=== PATIENT | female | born 1985 | race African-American/Black ===

== ENCOUNTER 2020-05-02 20:28 | Emergency (ER) | payer OTHER ==
[2020-05-02 21:36] VITALS: BP 118/81; PULSE 76; TEMP 98.1; BMI 35.2
[2020-05-02] MEDS ORDERED: METOCLOPRAMIDE HCL 10 MG TABLET (FP) PO ONE ×2 (23:13→23:39)
[2020-05-02] MEDS ORDERED: ACETAMINOPHEN 500 MG TABLET (FP) PO ONE (23:15)
[2020-05-02] MEDS ORDERED: ACETAMINOPHEN 325 MG TABLET (FP) ONE (23:39)
== END 2020-05-03 00:10 | disposition home or self-care (01) ==
LOC: JER 20:28
DX: M25.561 Pain in right knee (principal); V49.50XA Passenger injured in collision with unspecified motor vehicles in traffic accident, initial encounter
CPT/HCPCS: 73562-TC-RT-FY; 99284-25

== ENCOUNTER 2022-09-17 16:12 | Emergency (ER) | payer BC, OTHER ==
[2022-09-17 16:30] VITALS: BP 156/98; PULSE 74; RESP 18; TEMP 98; BMI 37.0
[2022-09-17] MEDS ORDERED: ASPIRIN 81 MG CHEWABLE TABLETS PO ONE (17:16)
[2022-09-17] MEDS ORDERED: ASPIRIN 81 MG CHEWABLE TABLETS ONE (17:20)
[2022-09-17 18:08] LABS: BASO % 0.6 % (0-2.0); EOS % 1.6 % (0-4.5); HEMATOCRIT 35.9 % (32.4-45.2); HEMOGLOBIN 11.7 GM/dL (10.7-15.3); LYMPH % 20.8 % (8-40); MCH 26.5 pg (25.7-33.7); MCHC 32.5 g/dl (32.0-36.0); MEAN CELL VOLUME 81.4 fl (80-96); MEAN PLT VOLUME 8.8 fl (7.5-11.1); MONO % 8.4 % (3.8-10.2); NEUT % 68.6 % (42.8-82.8); PLATELET COUNT 322 10^3/uL (134-434); RBC 4.41 M/mm3 (3.60-5.2); RDW 13.8 % (11.6-15.6); WHITE BLOOD COUNT 8.2 K/mm3 (4.0-10.0)
[2022-09-17 18:16] LABS: INR 1.14 (0.83-1.09); PROTHROMBIN TIME (PATIENT) 13.2 SEC (9.7-13.0)
[2022-09-17 18:19] LABS: ACTIVATED PTT 35.1 SECONDS (25.2-36.5)
[2022-09-17 18:24] LABS: POTASSIUM 3.8 mmol/L (3.5-5.1)
[2022-09-17 18:28] LABS: ALBUMIN 3.8 g/dl (3.4-5.0); BLOOD UREA NITROGEN 7.7 mg/dL (7-18)
[2022-09-17 18:30] LABS: CREATININE 0.6 mg/dL (0.55-1.3)
[2022-09-17 18:33] LABS: BILIRUBIN,TOTAL 0.6 mg/dL (0.2-1); TOT PROT 7.6 g/dl (6.4-8.2)
== END 2022-09-17 21:48 | disposition home or self-care (01) ==
LOC: JER 16:12
DX: R07.9 Chest pain, unspecified (principal); R11.0 Nausea
CPT/HCPCS: 36415; 71045-TC-FY; 80053; 84484; 85025; 85610; 85730; 86850; 86900; 86901; 93005; 93010; 99285-25

== ENCOUNTER 2022-12-16 11:50 | Emergency (ER) | payer BC ==
[2022-12-16 11:57] VITALS: RESP 19; BMI 36.0
[2022-12-16 13:41] LABS: BASO % 0.9 % (0-2.0); EOS % 2.4 % (0-4.5); HEMATOCRIT 36.3 % (32.4-45.2); HEMOGLOBIN 11.8 GM/dL (10.7-15.3); LYMPH % 25.1 % (8-40); MCH 26.5 pg (25.7-33.7); MCHC 32.5 g/dl (32.0-36.0); MEAN CELL VOLUME 81.6 fl (80-96); MEAN PLT VOLUME 8.7 fl (7.5-11.1); MONO % 10.6 % (3.8-10.2); PLATELET COUNT 326 10^3/uL (134-434); RBC 4.44 M/mm3 (3.60-5.2); RDW 13.6 % (11.6-15.6)
[2022-12-16 13:47] LABS: INR 1.13 (0.83-1.09); PROTHROMBIN TIME (PATIENT) 13.1 SEC (9.7-13.0)
[2022-12-16 13:53] LABS: POTASSIUM 4.1 mmol/L (3.5-5.1)
[2022-12-16 13:55] LABS: CALCIUM 8.9 mg/dL (8.5-10.1)
[2022-12-16 13:56] LABS: ALBUMIN 3.5 g/dl (3.4-5.0); BLOOD UREA NITROGEN 13.4 mg/dL (7-18)
[2022-12-16] MEDS ORDERED: ACETAMINOPHEN 1000 MG/100 ML BAG IVPB ONE (13:56)
[2022-12-16 13:59] LABS: CREATININE 0.6 mg/dL (0.55-1.3)
[2022-12-16 14:00] LABS: BILIRUBIN,TOTAL 0.6 mg/dL (0.2-1); TOT PROT 7.3 g/dl (6.4-8.2)
[2022-12-16] MEDS ORDERED: ACETAMINOPHEN INJECTION 100 ML IVPB ONE (14:07)
[2022-12-16 16:13] VITALS: BP 133/72; PULSE 89; TEMP 97.9
== END 2022-12-16 16:19 | disposition home or self-care (01) ==
LOC: JER 11:50
PROC: 3E033NZ Introduction of Analgesics, Hypnotics, Sedatives into Peripheral Vein, Percutaneous Approach (ICD-10-PCS; principal; 2022-12-16)
DX: R07.2 Precordial pain (principal); I10 Essential (primary) hypertension
CPT/HCPCS: 36415; 71045-TC-FY; 80053; 84484; 84703; 85025; 85610; 85730; 93005; 93010; 99285-25